=== PATIENT | female | born 1965 | race Caucasian/White ===

== ENCOUNTER 2021-03-11 10:00 | Day surgery (SDC) | payer OTHER ==
[2021-03-07 16:27] VITALS: BMI 32.5
[2021-03-11] MEDS ORDERED: BUPIVACAINE HCL/PF 0.25% (2.5MG/ML) 10 ML VIAL ONE (10:30)
[2021-03-11 10:33] VITALS: TEMP 97.8
[2021-03-11] MEDS ORDERED: MIDAZOLAM HCL 2 MG/2 ML SINGLE DOSE VIAL ONE (12:16)
[2021-03-11] MEDS ORDERED: ONDANSETRON 4 MG/2 ML VIAL ONE (12:34)
[2021-03-11] MEDS ORDERED: ceFAZolin SODIUM 1 GM VIAL ONE (12:34)
[2021-03-11] MEDS ORDERED: DEXAMETHASONE SOD PHOSPHATE 4 MG/1 ML VIAL ONE (12:34)
[2021-03-11] MEDS ORDERED: KETOROLAC TROMETHAMINE 30 MG/1 ML VIAL ONE (12:34)
[2021-03-11] MEDS ORDERED: oxyCODONE HCL 5 MG TABLET PO PRN (13:27)
[2021-03-11] MEDS ORDERED: ONDANSETRON 4 MG/2 ML VIAL IVPUSH PRN (13:27)
[2021-03-11] MEDS ORDERED: LACTATED RINGERS SOLUTION 1,000 ML IV SCH (13:30)
[2021-03-11 15:00] VITALS: BP 110/67; PULSE 77
== END 2021-03-11 15:22 | disposition home or self-care (01) ==
LOC: FASU 10:00
PROVIDERS: ATTEND Orthopaedic Surgery Sports Medicine
PROC: 0SBD4ZZ Excision of Left Knee Joint, Percutaneous Endoscopic Approach (ICD-10-PCS; 2021-03-11)
PROC: 0SBC4ZZ Excision of Right Knee Joint, Percutaneous Endoscopic Approach (ICD-10-PCS; principal; 2021-03-11 12:47)
PROC: 0SBC4ZZ Excision of Right Knee Joint, Percutaneous Endoscopic Approach (ICD-10-PCS; 2021-03-11 12:47)
DX: S83.241A Other tear of medial meniscus, current injury, right knee, initial encounter (principal); M65.861 Other synovitis and tenosynovitis, right lower leg; M94.261 Chondromalacia, right knee; X58.XXXA Exposure to other specified factors, initial encounter; Y93.9 Activity, unspecified; Y92.9 Unspecified place or not applicable
CPT/HCPCS: 29881; G0289; 84703; 94760

== ENCOUNTER 2022-12-04 07:19 | Day surgery (SDC) | payer OTHER ==
[2022-11-30 16:59] VITALS: BMI 32.0
[2022-12-04] MEDS ORDERED: ONDANSETRON 4 MG/2 ML VIAL ONE (07:59)
[2022-12-04] MEDS ORDERED: DEXAMETHASONE SOD PHOSPHATE 4 MG/1 ML VIAL ONE (08:00)
[2022-12-04] MEDS ORDERED: FENTANYL CITRATE/PF 50 MCG/ML VIAL ONE ×2 (08:00→08:54)
[2022-12-04] MEDS ORDERED: MIDAZOLAM HCL 2 MG/2 ML SINGLE DOSE VIAL ONE (08:00)
[2022-12-04] MEDS ORDERED: PROPOFOL 40 ML ONE (08:04)
[2022-12-04 09:28] VITALS: RESP 16
[2022-12-04] MEDS ORDERED: oxyCODONE HCL 5 MG TABLET PO PRN ×2 (09:44)
[2022-12-04] MEDS ORDERED: ONDANSETRON 4 MG/2 ML VIAL IVPUSH PRN (09:44)
[2022-12-04] MEDS ORDERED: LACTATED RINGERS SOLUTION 1,000 ML IV SCH (09:45)
[2022-12-04 10:10] VITALS: PULSE 84; TEMP 97.8
[2022-12-04 10:23] VITALS: BP 128/75
== END 2022-12-04 10:30 | disposition home or self-care (01) ==
LOC: FASU 07:19
PROVIDERS: ATTEND Orthopaedic Surgery Sports Medicine
PROC: 7W06X9Z Osteopathic Treatment of Lower Extremities using Other Method (ICD-10-PCS; principal; 2022-12-04 08:10)
DX: M24.661 Ankylosis, right knee (principal); M25.661 Stiffness of right knee, not elsewhere classified
CPT/HCPCS: 94760

== ENCOUNTER 2023-05-07 06:33 | Day surgery (SDC) | payer OTHER ==
[2023-04-30 15:36] VITALS: BMI 32.5
[2023-05-07] MEDS ORDERED: MIDAZOLAM HCL 2 MG/2 ML SINGLE DOSE VIAL ONE (06:55)
[2023-05-07] MEDS ORDERED: PROPOFOL 20 ML ONE (06:55)
[2023-05-07] MEDS ORDERED: EPINEPHrine 1:1,000 1,000 MCG/ML ML ONE (07:15)
[2023-05-07] MEDS ORDERED: BUPIVACAINE HCL/PF 0.5% (5MG/ML) 10 ML VIAL ONE (07:19)
[2023-05-07] MEDS ORDERED: BUPIVACAINE HCL/PF 0.25% (2.5MG/ML) 10 ML VIAL ONE (07:19)
[2023-05-07] MEDS ORDERED: ePHEDrine SULFATE 50 MG/1 ML AMPULE ONE (08:01)
[2023-05-07] MEDS ORDERED: BUPIVACAINE HCL/PF 0.25% (2.5MG/ML) 10 ML VIAL IJ ONE (09:05)
[2023-05-07] MEDS ORDERED: ONDANSETRON 4 MG/2 ML VIAL ONE (09:19)
[2023-05-07] MEDS ORDERED: DEXAMETHASONE SOD PHOSPHATE 4 MG/1 ML VIAL ONE (09:19)
[2023-05-07] MEDS ORDERED: KETOROLAC TROMETHAMINE 30 MG/1 ML VIAL ONE (09:19)
[2023-05-07] MEDS ORDERED: ceFAZolin SODIUM 1 GM VIAL ONE (09:19)
[2023-05-07] MEDS ORDERED: oxyCODONE HCL 5 MG TABLET PO PRN (09:26)
[2023-05-07] MEDS ORDERED: ONDANSETRON 4 MG/2 ML VIAL IVPUSH PRN (09:26)
[2023-05-07] MEDS ORDERED: ACETAMINOPHEN 1000 MG/100 ML BAG IVPB ONE (09:27)
[2023-05-07] MEDS ORDERED: LACTATED RINGERS SOLUTION 1,000 ML IV SCH (09:30)
[2023-05-07] MEDS ORDERED: IPRATROPIUM BR 0.02% 0.5 MG/2.5 ML VIAL.NEB. NEB ONE (10:24)
[2023-05-07] MEDS ORDERED: oxyCODONE HCL 5 MG TABLET ONE (10:50)
[2023-05-07 11:35] VITALS: TEMP 97.1
[2023-05-07 13:02] VITALS: RESP 20
[2023-05-07 13:59] VITALS: BP 113/68; PULSE 75
== END 2023-05-07 13:45 | disposition home or self-care (01) ==
LOC: FASU 06:33
PROVIDERS: ATTEND Orthopaedic Surgery Sports Medicine
PROC: 0SNCXZZ Release Right Knee Joint, External Approach (ICD-10-PCS; 2023-05-07)
PROC: 0SSCXZZ Reposition Right Knee Joint, External Approach (ICD-10-PCS; principal; 2023-05-07 07:47)
DX: M24.661 Ankylosis, right knee (principal)
CPT/HCPCS: 94760